=== PATIENT | female | born 1935 | race Caucasian/White ===

== ENCOUNTER 2017-11-11 06:31 | Inpatient (IN) ==
[2017-11-08 14:40] LABS: Basophils # 0.1 10*3/uL (0.0-0.2); Basophils % 0.7 % (0.0-0.8); Eosinophils # 0.4 10*3/uL (0.0-0.87); Eosinophils % 3.1 % (0.00-10.9); Hematocrit 33.3 VOL% (35.7-47.0); Hemoglobin 10.9 GM/DL (12.0-16.0); Immature Granulocytes % 0.6 %; Immature Granulocytes Absolute 0.08 #; Lymphocytes # 6.3 10*3/uL (1.4-4.0); Lymphocytes % 50.7 % (21.3-54.2); Mean Corpuscular HGB Conc 32.7 GM/DL (32-36); Mean Corpuscular Hemoglobin 30 PG (27-34); Mean Platelet Volume 9.4 FL (9.6-12.0); Monocytes # 0.9 10*3/uL (0.11-0.8); Monocytes % 7.2 % (1.7-12.7); Neutrophils # 4.7 10*3/uL (1.4-7.4); Neutrophils % 37.7 % (38.7-73.9); Platelet Count 243 T/CUMM (130-400); Red Cell Distribution Width 18.6 % (9.3-17.3); White Blood Count 12.4 T/CUMM (4-12)
[2017-11-08 15:11] LABS: Albumin 3.4 G/DL (3.4-5.0); Bilirubin,Total 0.4 MG/DL (0.2-1.0); Calcium 8.9 MG/DL (8.5-10.1); Osmolality,Calculated 283.1 MOS/KG (273-304); Potassium 4.1 MMOL/L (3.5-5.1); Total Protein 6.4 G/DL (6.4-8.3)
[2017-11-08 15:21] LABS: Microcytosis 1+
[2017-11-08 15:22] LABS: Anisocytosis 1+; Ovalocytes Few; Platelet Estimate Adequate; Polychromasia Slight
[~2017-11-11 06:31] MED LIST: ALVIMOPAN 12 MG CAPSULE PO ONE
[2017-11-11] MEDS ORDERED: LACTATED RINGERS 1,000 ML IV SCH (08:00)
[2017-11-11] MEDS ORDERED: BUPIVACAINE MPF 0.25% /EPI 30 ML VIAL ONE (09:18)
[2017-11-11] MEDS ORDERED: LIDOCAINE 1%/EPI INJ 20 ML VIAL ONE (09:18)
[2017-11-11] MEDS ORDERED: MIDAZOLAM 2 MG/2 ML VIAL ONE (14:23)
[2017-11-11] MEDS ORDERED: fentaNYL 100 MCG/2 ML VIAL ONE (14:23)
[2017-11-11] MEDS ORDERED: PROPOFOL 200 MG/20 ML VIAL IV ONE (14:24)
[2017-11-11] MEDS ORDERED: ROCURONIUM 100 MG/10 ML VIAL IV ONE (14:25)
[2017-11-11] MEDS ORDERED: ONDANSETRON 4 MG/2 ML VIAL ONE ×2 (14:25→15:02)
[2017-11-11] MEDS ORDERED: LACTATED RINGERS 1,000 ML IV ONE (14:25)
[2017-11-11] MEDS ORDERED: PHENYLEPHRINE 1 MG/10 ML SYRINGE IV ONE (14:25)
[2017-11-11] MEDS ORDERED: GLYCOPYRROLATE 0.4 MG/2 ML VIAL ONE ×2 (14:25)
[2017-11-11] MEDS ORDERED: NEOSTIGMINE 10 MG/10 ML VIAL ONE (14:25)
[2017-11-11] MEDS ORDERED: ACETAMINOPHEN 1,000 MG/100 ML VIAL IV ONE (14:25)
[2017-11-11] MEDS ORDERED: KETOROLAC 30 MG/1 ML VIAL ONE (14:25)
[2017-11-11] MEDS: ONDANSETRON 4 MG/2 ML VIAL IV PRN (15:02)
[2017-11-11] MEDS: DEXTROSE 5% LACTATED RINGERS 1,000 ML IV SCH (15:45)
[2017-11-11] MEDS: HYDROmorphone 2 MG/1 ML VIAL IV PRN (16:25)
[2017-11-11 16:49] LABS: Basophils % 0.3 % (0.0-0.8); Eosinophils % 0.1 % (0.00-10.9); Hemoglobin 9.4 GM/DL (12.0-16.0); Immature Granulocytes % 0.4 %; Immature Granulocytes Absolute 0.06 #; Lymphocytes # 2.8 10*3/uL (1.4-4.0); Lymphocytes % 21.1 % (21.3-54.2); Mean Corpuscular HGB Conc 31.3 GM/DL (32-36); Mean Corpuscular Hemoglobin 29 PG (27-34); Mean Corpuscular Volume 93.2 FL (87-102); Mean Platelet Volume 9.6 FL (9.6-12.0); Monocytes # 0.9 10*3/uL (0.11-0.8); Monocytes % 6.5 % (1.7-12.7); Neutrophils # 9.7 10*3/uL (1.4-7.4); Neutrophils % 71.6 % (38.7-73.9); Platelet Count 214 T/CUMM (130-400); Red Blood Count 3.22 MC/CUMM (3.8-5.5); Red Cell Distribution Width 18.6 % (9.3-17.3); White Blood Count 13.5 T/CUMM (4-12)
[2017-11-11 17:04] LABS: Calcium 7.2 MG/DL (8.5-10.1); Osmolality,Calculated 282.3 MOS/KG (273-304); Potassium 3.5 MMOL/L (3.5-5.1)
[2017-11-11 17:21] LABS: Band Neutrophils 8 % (0-10); Lymphocytes 13 % (20-55); Platelet Estimate Normal; Segmented Neutrophils 77 % (50-85); Total Cells Counted 100
[2017-11-11 17:22] LABS: Hypochromasia Slight; Macrocytosis Slight
[2017-11-11] MEDS: metroNIDAZOLE INJ 500 MG in PREMIX 1 EACH IV SCH (19:46)
[2017-11-11 23:00] LABS: Hematocrit 28.3 VOL% (35.7-47.0); Hemoglobin 8.8 GM/DL (12.0-16.0)
[2017-11-12] MEDS: HYDROmorphone 2 MG/1 ML VIAL IV PRN ×3 (00:38→22:25)
[2017-11-12] MEDS: DEXTROSE 5% LACTATED RINGERS 1,000 ML IV SCH ×3 (01:09→19:21)
[2017-11-12 03:20] LABS: Basophils # 0.1 10*3/uL (0.0-0.2); Basophils % 0.3 % (0.0-0.8); Eosinophils % 0.1 % (0.00-10.9); Hematocrit 26.2 VOL% (35.7-47.0); Hemoglobin 8.7 GM/DL (12.0-16.0); Immature Granulocytes % 0.4 %; Immature Granulocytes Absolute 0.08 #; Lymphocytes # 4.5 10*3/uL (1.4-4.0); Lymphocytes % 24.9 % (21.3-54.2); Mean Corpuscular HGB Conc 33.2 GM/DL (32-36); Mean Corpuscular Hemoglobin 31 PG (27-34); Mean Corpuscular Volume 92.3 FL (87-102); Mean Platelet Volume 9.8 FL (9.6-12.0); Monocytes # 1.2 10*3/uL (0.11-0.8); Monocytes % 6.4 % (1.7-12.7); Neutrophils # 12.2 10*3/uL (1.4-7.4); Neutrophils % 67.9 % (38.7-73.9); Platelet Count 219 T/CUMM (130-400); Red Blood Count 2.84 MC/CUMM (3.8-5.5); Red Cell Distribution Width 18.7 % (9.3-17.3)
[2017-11-12 04:05] LABS: Hypochromasia Slight; Platelet Estimate Adequate; Polychromasia Few
[2017-11-12 04:06] LABS: Calcium 7.5 MG/DL (8.5-10.1); Osmolality,Calculated 281.3 MOS/KG (273-304); Potassium 3.5 MMOL/L (3.5-5.1)
[2017-11-12] MEDS: metroNIDAZOLE INJ 500 MG in PREMIX 1 EACH IV SCH (05:01)
[2017-11-12] MEDS: ONDANSETRON 4 MG/2 ML VIAL IV PRN ×2 (07:03→22:25)
[2017-11-12] MEDS ORDERED: LEVOFLOXACIN INJ 500 MG in PREMIX 1 EACH IV SCH (08:11)
[2017-11-12] MEDS ORDERED: ENOXAPARIN 30 MG/0.3 ML SYRINGE SUBCUT SCH (08:12)
[2017-11-12] MEDS: ASPIRIN EC 81 MG TABLET PO SCH (09:02)
[2017-11-12] MEDS: DILTIAZEM CD 120 MG CAPSULE PO SCH (09:02)
[2017-11-12] MEDS: PANTOPRAZOLE 40 MG TABLET PO SCH (09:03)
[2017-11-12 09:14] LABS: Hematocrit 25.4 VOL% (35.7-47.0); Hemoglobin 7.8 GM/DL (12.0-16.0)
[2017-11-13] MEDS: DEXTROSE 5% LACTATED RINGERS 1,000 ML IV SCH ×3 (03:12→18:42)
[2017-11-13] MEDS: ONDANSETRON 4 MG/2 ML VIAL IV PRN ×4 (03:24→20:05)
[2017-11-13] MEDS: HYDROmorphone 2 MG/1 ML VIAL IV PRN (03:42)
[2017-11-13 06:41] LABS: Basophils # 0.1 10*3/uL (0.0-0.2); Basophils % 0.2 % (0.0-0.8); Eosinophils # 0.1 10*3/uL (0.0-0.87); Eosinophils % 0.3 % (0.00-10.9); Hematocrit 28.4 VOL% (35.7-47.0); Hemoglobin 9.1 GM/DL (12.0-16.0); Immature Granulocytes % 0.7 %; Immature Granulocytes Absolute 0.14 #; Lymphocytes # 8.4 10*3/uL (1.4-4.0); Lymphocytes % 40.5 % (21.3-54.2); Mean Corpuscular Hemoglobin 29 PG (27-34); Mean Corpuscular Volume 91.6 FL (87-102); Mean Platelet Volume 9.5 FL (9.6-12.0); Monocytes # 1.3 10*3/uL (0.11-0.8); Monocytes % 6.5 % (1.7-12.7); Neutrophils # 10.7 10*3/uL (1.4-7.4); Neutrophils % 51.8 % (38.7-73.9); Platelet Count 232 T/CUMM (130-400); Red Cell Distribution Width 19.2 % (9.3-17.3); White Blood Count 20.7 T/CUMM (4-12)
[2017-11-13 06:55] LABS: Calcium 8.1 MG/DL (8.5-10.1); Osmolality,Calculated 278.4 MOS/KG (273-304); Potassium 3.6 MMOL/L (3.5-5.1)
[2017-11-13 07:20] LABS: Atypical Lymphocytes Few; Lymphocytes 34 % (20-55); Smudge Cells Few; Total Cells Counted 100
[2017-11-13 07:21] LABS: Hypochromasia 1+; Microcytosis 1+
[2017-11-13 07:23] LABS: Segmented Neutrophils 59 % (50-85)
[2017-11-13] MEDS: DILTIAZEM CD 120 MG CAPSULE PO SCH (08:42)
[2017-11-13] MEDS: ASPIRIN EC 81 MG TABLET PO SCH (09:07)
[2017-11-13] MEDS: PANTOPRAZOLE 40 MG TABLET PO SCH (09:07)
[2017-11-13] MEDS: ENOXAPARIN 40 MG/0.4 ML SYRINGE SUBCUT SCH (09:08)
[2017-11-14] MEDS: ONDANSETRON 4 MG/2 ML VIAL IV PRN ×2 (01:19→06:30)
[2017-11-14] MEDS: DEXTROSE 5% LACTATED RINGERS 1,000 ML IV SCH ×3 (02:14→19:11)
[2017-11-14 05:01] LABS: Basophils % 0.3 % (0.0-0.8); Eosinophils # 0.1 10*3/uL (0.0-0.87); Hemoglobin 9.4 GM/DL (12.0-16.0); Immature Granulocytes % 0.4 %; Immature Granulocytes Absolute 0.06 #; Lymphocytes # 6.6 10*3/uL (1.4-4.0); Mean Corpuscular HGB Conc 32.4 GM/DL (32-36); Mean Corpuscular Hemoglobin 29 PG (27-34); Mean Corpuscular Volume 90.6 FL (87-102); Mean Platelet Volume 9.6 FL (9.6-12.0); Monocytes # 1.2 10*3/uL (0.11-0.8); Monocytes % 8.4 % (1.7-12.7); Neutrophils # 5.8 10*3/uL (1.4-7.4); Neutrophils % 41.9 % (38.7-73.9); Platelet Count 244 T/CUMM (130-400); Red Cell Distribution Width 18.6 % (9.3-17.3); White Blood Count 13.8 T/CUMM (4-12)
[2017-11-14 05:26] LABS: Anisocytosis 1+; Hypochromasia 1+; Microcytosis 1+
[2017-11-14 05:27] LABS: Ovalocytes Slight; Platelet Estimate Normal
[2017-11-14] MEDS ORDERED: PROMETHAZINE INJ 12.5 MG in SODIUM CHLORIDE 0.9% 50 ML IV ONE (07:32)
[2017-11-14] MEDS: ENOXAPARIN 40 MG/0.4 ML SYRINGE SUBCUT SCH (08:53)
[2017-11-14] MEDS: ASPIRIN EC 81 MG TABLET PO SCH (08:56)
[2017-11-14] MEDS: DILTIAZEM CD 120 MG CAPSULE PO SCH (08:56)
[2017-11-14] MEDS: PANTOPRAZOLE 40 MG TABLET PO SCH (08:57)
[2017-11-15] MEDS: DEXTROSE 5% LACTATED RINGERS 1,000 ML IV SCH ×3 (03:02→21:52)
[2017-11-15 06:24] LABS: Basophils # 0.1 10*3/uL (0.0-0.2); Basophils % 0.4 % (0.0-0.8); Eosinophils # 0.3 10*3/uL (0.0-0.87); Eosinophils % 2.3 % (0.00-10.9); Hemoglobin 8.6 GM/DL (12.0-16.0); Immature Granulocytes % 0.7 %; Immature Granulocytes Absolute 0.08 #; Lymphocytes # 6.6 10*3/uL (1.4-4.0); Lymphocytes % 57.1 % (21.3-54.2); Mean Corpuscular HGB Conc 30.7 GM/DL (32-36); Mean Corpuscular Hemoglobin 28 PG (27-34); Mean Corpuscular Volume 92.1 FL (87-102); Mean Platelet Volume 9.8 FL (9.6-12.0); Monocytes # 1.1 10*3/uL (0.11-0.8); Monocytes % 9.7 % (1.7-12.7); Neutrophils # 3.4 10*3/uL (1.4-7.4); Neutrophils % 29.8 % (38.7-73.9); Platelet Count 283 T/CUMM (130-400); Red Blood Count 3.04 MC/CUMM (3.8-5.5); Red Cell Distribution Width 18.7 % (9.3-17.3); White Blood Count 11.5 T/CUMM (4-12)
[2017-11-15 07:07] LABS: Band Neutrophils 3 % (0-10); Eosinophils 4 % (0-10); Hypochromasia 1+; Lymphocytes 51 % (20-55); Platelet Estimate Adequate; Segmented Neutrophils 29 % (50-85); Total Cells Counted 100
[2017-11-15 07:08] LABS: Atypical Lymphocytes Few; Microcytosis 1+
[2017-11-15] MEDS: ASPIRIN EC 81 MG TABLET PO SCH (08:19)
[2017-11-15] MEDS: DILTIAZEM CD 120 MG CAPSULE PO SCH (08:20)
[2017-11-15] MEDS: PANTOPRAZOLE 40 MG TABLET PO SCH (08:20)
[2017-11-15] MEDS: ENOXAPARIN 40 MG/0.4 ML SYRINGE SUBCUT SCH (08:20)
[2017-11-16 04:54] LABS: Calcium 8.2 MG/DL (8.5-10.1); Osmolality,Calculated 290.6 MOS/KG (273-304)
[2017-11-16 05:01] LABS: Potassium 2.4 MMOL/L (3.5-5.1)
[2017-11-16] MEDS: POTASSIUM CHLORIDE RIDER 20 MEQ in PREMIX 1 EACH IV PRN ×4 (06:42→23:28)
[2017-11-16] MEDS: DILTIAZEM CD 120 MG CAPSULE PO SCH (08:18)
[2017-11-16] MEDS: ENOXAPARIN 40 MG/0.4 ML SYRINGE SUBCUT SCH (08:18)
[2017-11-16] MEDS: ASPIRIN EC 81 MG TABLET PO SCH (08:18)
[2017-11-16] MEDS: PANTOPRAZOLE 40 MG TABLET PO SCH (08:18)
[2017-11-16] MEDS: POTASSIUM CHLORIDE 20 MEQ TABLET PO SCH ×2 (09:03→20:56)
[2017-11-16] MEDS: DEXTROSE 5% LACTATED RINGERS 1,000 ML IV SCH (21:31)
[2017-11-17 04:56] LABS: Basophils # 0.1 10*3/uL (0.0-0.2); Basophils % 0.3 % (0.0-0.8); Eosinophils # 0.2 10*3/uL (0.0-0.87); Eosinophils % 1.4 % (0.00-10.9); Hematocrit 25.6 VOL% (35.7-47.0); Hemoglobin 7.6 GM/DL (12.0-16.0); Immature Granulocytes % 2.9 %; Immature Granulocytes Absolute 0.43 #; Lymphocytes # 7.5 10*3/uL (1.4-4.0); Lymphocytes % 50.3 % (21.3-54.2); Mean Corpuscular HGB Conc 29.7 GM/DL (32-36); Mean Corpuscular Hemoglobin 28 PG (27-34); Mean Corpuscular Volume 94.5 FL (87-102); Monocytes # 1.1 10*3/uL (0.11-0.8); Monocytes % 7.4 % (1.7-12.7); NRBC # 0.02 10*3/uL; Neutrophils # 5.6 10*3/uL (1.4-7.4); Neutrophils % 37.7 % (38.7-73.9); Platelet Count 306 T/CUMM (130-400); Red Blood Count 2.71 MC/CUMM (3.8-5.5); Red Cell Distribution Width 19.1 % (9.3-17.3); White Blood Count 14.9 T/CUMM (4-12)
[2017-11-17 05:25] LABS: Atypical Lymphocytes Few; Band Neutrophils 3 % (0-10); Calcium 8.4 MG/DL (8.5-10.1); Eosinophils 3 % (0-10); Hypochromasia 1+; Lymphocytes 43 % (20-55); Microcytosis 1+; Myelocytes 2 %; Osmolality,Calculated 290.6 MOS/KG (273-304); Potassium 3.4 MMOL/L (3.5-5.1); Segmented Neutrophils 42 % (50-85); Total Cells Counted 100
[2017-11-17] MEDS: POTASSIUM CHLORIDE RIDER 20 MEQ in PREMIX 1 EACH IV PRN (05:50)
[2017-11-17] MEDS: DEXTROSE 5% LACTATED RINGERS 1,000 ML IV SCH ×4 (05:50→12:33)
[2017-11-17] MEDS: ASPIRIN EC 81 MG TABLET PO SCH (08:47)
[2017-11-17] MEDS: DILTIAZEM CD 120 MG CAPSULE PO SCH (08:48)
[2017-11-17] MEDS: POTASSIUM CHLORIDE 20 MEQ TABLET PO SCH (08:48)
[2017-11-17] MEDS: PANTOPRAZOLE 40 MG TABLET PO SCH (08:48)
[2017-11-17] MEDS: ENOXAPARIN 40 MG/0.4 ML SYRINGE SUBCUT SCH (08:57)
[2017-11-17] MEDS: POTASSIUM CHLORIDE RIDER 10 MEQ in PREMIX 1 EACH IV PRN (08:57)
[2017-11-17] MEDS ORDERED: INFLUENZA VIRUS VACCINE 0.5 ML SYRINGE IM ONE (09:00)
[2017-11-18] MEDS: DEXTROSE 5% LACTATED RINGERS 1,000 ML IV SCH (06:56)
[2017-11-18] MEDS: DILTIAZEM CD 120 MG CAPSULE PO SCH (09:57)
[2017-11-18] MEDS: ASPIRIN EC 81 MG TABLET PO SCH (09:58)
[2017-11-18] MEDS: PANTOPRAZOLE 40 MG TABLET PO SCH (09:58)
[2017-11-18 10:24] LABS: Basophils # 0.1 10*3/uL (0.0-0.2); Basophils % 0.3 % (0.0-0.8); Eosinophils # 0.1 10*3/uL (0.0-0.87); Eosinophils % 0.5 % (0.00-10.9); Hematocrit 27.8 VOL% (35.7-47.0); Hemoglobin 8.6 GM/DL (12.0-16.0); Immature Granulocytes % 3.9 %; Lymphocytes # 11.5 10*3/uL (1.4-4.0); Lymphocytes % 50.5 % (21.3-54.2); Mean Corpuscular HGB Conc 30.9 GM/DL (32-36); Mean Corpuscular Hemoglobin 29 PG (27-34); Mean Corpuscular Volume 93.3 FL (87-102); Mean Platelet Volume 10.1 FL (9.6-12.0); Monocytes # 1.4 10*3/uL (0.11-0.8); Monocytes % 6.1 % (1.7-12.7); NRBC # 0.02 10*3/uL; Neutrophils # 8.8 10*3/uL (1.4-7.4); Neutrophils % 38.7 % (38.7-73.9); Platelet Count 376 T/CUMM (130-400); Red Blood Count 2.98 MC/CUMM (3.8-5.5); Red Cell Distribution Width 18.9 % (9.3-17.3); White Blood Count 22.8 T/CUMM (4-12)
[2017-11-18 10:37] LABS: Calcium 8.5 MG/DL (8.5-10.1); Osmolality,Calculated 288.8 MOS/KG (273-304); Potassium 3.2 MMOL/L (3.5-5.1)
[2017-11-18 11:15] LABS: Band Neutrophils 3 % (0-10); Hypochromasia 1+; Lymphocytes 47 % (20-55); Microcytosis 1+; Segmented Neutrophils 43 % (50-85); Total Cells Counted 100
[2017-11-18 11:16] LABS: Atypical Lymphocytes Few; Ovalocytes Slight; Smudge Cells Few
[2017-11-18 11:19] LABS: Platelet Estimate Normal
[2017-11-18] MEDS: POTASSIUM CHLORIDE RIDER 10 MEQ in PREMIX 1 EACH IV PRN ×2 (11:25→12:39)
[2017-11-18] MEDS: ONDANSETRON 4 MG/2 ML VIAL IV PRN (12:53)
[2017-11-18] MEDS: ENOXAPARIN 40 MG/0.4 ML SYRINGE SUBCUT SCH (12:56)
[2017-11-18] MEDS: POTASSIUM CHLORIDE RIDER 20 MEQ in PREMIX 1 EACH IV PRN (17:46)
[2017-11-19 07:01] LABS: Calcium 8.6 MG/DL (8.5-10.1); Osmolality,Calculated 281.3 MOS/KG (273-304); Potassium 3.2 MMOL/L (3.5-5.1)
[2017-11-19 07:33] LABS: Basophils # 0.1 10*3/uL (0.0-0.2); Basophils % 0.3 % (0.0-0.8); Eosinophils # 0.2 10*3/uL (0.0-0.87); Hematocrit 28.5 VOL% (35.7-47.0); Hemoglobin 8.7 GM/DL (12.0-16.0); Immature Granulocytes % 3.2 %; Immature Granulocytes Absolute 0.78 #; Lymphocytes # 14.2 10*3/uL (1.4-4.0); Lymphocytes % 57.8 % (21.3-54.2); Mean Corpuscular HGB Conc 30.5 GM/DL (32-36); Mean Corpuscular Hemoglobin 28 PG (27-34); Mean Corpuscular Volume 93.1 FL (87-102); Mean Platelet Volume 10.2 FL (9.6-12.0); Monocytes # 1.4 10*3/uL (0.11-0.8); Monocytes % 5.8 % (1.7-12.7); Neutrophils # 7.8 10*3/uL (1.4-7.4); Neutrophils % 31.9 % (38.7-73.9); Platelet Count 443 T/CUMM (130-400); Red Blood Count 3.06 MC/CUMM (3.8-5.5); White Blood Count 24.5 T/CUMM (4-12)
[2017-11-19] MEDS: DEXTROSE 5% LACTATED RINGERS 1,000 ML IV SCH ×3 (07:40→08:18)
[2017-11-19 07:54] LABS: Calcium 8.5 MG/DL (8.5-10.1); Osmolality,Calculated 284.1 MOS/KG (273-304); Potassium 3.2 MMOL/L (3.5-5.1)
[2017-11-19 07:58] LABS: Band Neutrophils 20 % (0-10); Lymphocytes 43 % (20-55); Platelet Estimate Normal; Segmented Neutrophils 29 % (50-85); Smudge Cells 1+; Total Cells Counted 100
[2017-11-19 07:59] LABS: Anisocytosis 1+
[2017-11-19] MEDS: ASPIRIN EC 81 MG TABLET PO SCH (09:22)
[2017-11-19] MEDS: PANTOPRAZOLE 40 MG TABLET PO SCH (09:22)
[2017-11-19] MEDS: ENOXAPARIN 40 MG/0.4 ML SYRINGE SUBCUT SCH (09:22)
[2017-11-19] MEDS: DILTIAZEM CD 120 MG CAPSULE PO SCH (09:22)
[2017-11-19] MEDS: ONDANSETRON 4 MG/2 ML VIAL IV PRN ×3 (13:08→23:32)
[2017-11-19] MEDS: DEXT 5% NACL 0.45% KCL 20 MEQ 20 MEQ/1,000 ML BAG IV SCH (15:44)
[2017-11-19] MEDS: POTASSIUM CHLORIDE RIDER 10 MEQ in PREMIX 1 EACH IV PRN ×4 (15:47→19:01)
[2017-11-19] MEDS ORDERED: DEXTROSE 50% 25 GM/50 ML VIAL IV PRN (16:09)
[2017-11-19] MEDS ORDERED: GLUCAGON 1 MG VIAL IM PRN (16:09)
[2017-11-19] MEDS ORDERED: DEXTROSE 10% 1,000 ML IV PRN (17:00)
[2017-11-19] MEDS ORDERED: TRACE ELEMENTS (5) 1 ML, MULTIVITAMIN INJ 10 ML in AMINO ACIDS/DEXT/LYTES 5-15% 2,000 ML IV SCH (17:00)
[2017-11-19] MEDS: INSULIN REGULAR 100 UNIT/ML SUBCUT SCH (17:50)
[2017-11-19] MEDS: FAT EMULSION 20% 250 ML IV SCH (20:38)
[2017-11-20] MEDS: PROMETHAZINE INJ 25 MG in SODIUM CHLORIDE 0.9% 50 ML IV PRN ×2 (00:31→10:39)
[2017-11-20] MEDS: INSULIN REGULAR 100 UNIT/ML SUBCUT SCH ×4 (01:40→18:51)
[2017-11-20] MEDS: DEXT 5% NACL 0.45% KCL 20 MEQ 20 MEQ/1,000 ML BAG IV SCH ×2 (01:40→12:01)
[2017-11-20 04:36] LABS: Basophils # 0.1 10*3/uL (0.0-0.2); Basophils % 0.3 % (0.0-0.8); Eosinophils # 0.3 10*3/uL (0.0-0.87); Eosinophils % 1.3 % (0.00-10.9); Hematocrit 26.9 VOL% (35.7-47.0); Hemoglobin 8.3 GM/DL (12.0-16.0); Immature Granulocytes % 2.9 %; Immature Granulocytes Absolute 0.69 #; Lymphocytes # 12.5 10*3/uL (1.4-4.0); Mean Corpuscular HGB Conc 30.9 GM/DL (32-36); Mean Corpuscular Hemoglobin 28 PG (27-34); Mean Corpuscular Volume 91.8 FL (87-102); Mean Platelet Volume 10.5 FL (9.6-12.0); Monocytes # 1.2 10*3/uL (0.11-0.8); Monocytes % 5.2 % (1.7-12.7); NRBC # 0.02 10*3/uL; Neutrophils # 8.8 10*3/uL (1.4-7.4); Neutrophils % 37.3 % (38.7-73.9); Platelet Count 453 T/CUMM (130-400); Red Blood Count 2.93 MC/CUMM (3.8-5.5); Red Cell Distribution Width 18.8 % (9.3-17.3); White Blood Count 23.6 T/CUMM (4-12)
[2017-11-20 04:52] LABS: Calcium 7.9 MG/DL (8.5-10.1); Osmolality,Calculated 283.4 MOS/KG (273-304); Potassium 3.7 MMOL/L (3.5-5.1)
[2017-11-20 04:56] LABS: Prealbumin 16.6 MG/DL (20-40)
[2017-11-20 07:21] LABS: Band Neutrophils 3 % (0-10); Lymphocytes 50 % (20-55); Segmented Neutrophils 38 % (50-85); Total Cells Counted 100
[2017-11-20 07:22] LABS: Platelet Estimate Normal
[2017-11-20] MEDS: POTASSIUM CHLORIDE RIDER 10 MEQ in PREMIX 1 EACH IV PRN (07:56)
[2017-11-20] MEDS: ASPIRIN EC 81 MG TABLET PO SCH (09:02)
[2017-11-20] MEDS: DILTIAZEM CD 120 MG CAPSULE PO SCH (09:02)
[2017-11-20] MEDS: PANTOPRAZOLE 40 MG TABLET PO SCH (09:02)
[2017-11-20] MEDS: ENOXAPARIN 40 MG/0.4 ML SYRINGE SUBCUT SCH (09:02)
[2017-11-20] MEDS ORDERED: HEPARIN LOCK FLUSH 500 UNIT/5 ML SYRINGE IV PRN (10:45)
[2017-11-20] MEDS: FAT EMULSION 20% 250 ML IV SCH (13:06)
[2017-11-20] MEDS: TRACE ELEMENTS (5) 1 ML, MULTIVITAMIN INJ 10 ML in AMINO ACIDS/DEXT/LYTES 5-15% 2,000 ML IV SCH (17:35)
[2017-11-21] MEDS: INSULIN REGULAR 100 UNIT/ML SUBCUT SCH ×4 (01:33→18:20)
[2017-11-21] MEDS: DEXT 5% NACL 0.45% KCL 20 MEQ 20 MEQ/1,000 ML BAG IV SCH ×3 (02:15→14:06)
[2017-11-21] MEDS: DILTIAZEM CD 120 MG CAPSULE PO SCH (09:10)
[2017-11-21] MEDS: PANTOPRAZOLE 40 MG TABLET PO SCH (09:11)
[2017-11-21] MEDS: ASPIRIN EC 81 MG TABLET PO SCH (09:11)
[2017-11-21] MEDS: ENOXAPARIN 40 MG/0.4 ML SYRINGE SUBCUT SCH (09:13)
[2017-11-21] MEDS: FAT EMULSION 20% 250 ML IV SCH (16:48)
[2017-11-21] MEDS: TRACE ELEMENTS (5) 1 ML, MULTIVITAMIN INJ 10 ML in AMINO ACIDS/DEXT/LYTES 5-15% 2,000 ML IV SCH (21:26)
[2017-11-22] MEDS: INSULIN REGULAR 100 UNIT/ML SUBCUT SCH ×4 (01:41→17:21)
[2017-11-22] MEDS: DEXT 5% NACL 0.45% KCL 20 MEQ 20 MEQ/1,000 ML BAG IV SCH ×4 (04:46→21:30)
[2017-11-22] MEDS: ASPIRIN EC 81 MG TABLET PO SCH (09:47)
[2017-11-22] MEDS: ENOXAPARIN 40 MG/0.4 ML SYRINGE SUBCUT SCH (09:47)
[2017-11-22] MEDS: DILTIAZEM CD 120 MG CAPSULE PO SCH (09:47)
[2017-11-22] MEDS: PANTOPRAZOLE 40 MG TABLET PO SCH (09:47)
[2017-11-22 11:59] LABS: Calcium 7.8 MG/DL (8.5-10.1); Potassium 4.3 MMOL/L (3.5-5.1)
[2017-11-22] MEDS: FAT EMULSION 20% 250 ML IV SCH (13:25)
[2017-11-22] MEDS: TRACE ELEMENTS (5) 1 ML, MULTIVITAMIN INJ 10 ML in AMINO ACIDS/DEXT/LYTES 5-15% 2,000 ML IV SCH (16:32)
[2017-11-23] MEDS: INSULIN REGULAR 100 UNIT/ML SUBCUT SCH ×4 (00:19→20:14)
[2017-11-23 07:19] LABS: Basophils # 0.1 10*3/uL (0.0-0.2); Basophils % 0.2 % (0.0-0.8); Eosinophils # 0.4 10*3/uL (0.0-0.87); Eosinophils % 1.4 % (0.00-10.9); Hematocrit 25.4 VOL% (35.7-47.0); Hemoglobin 8.1 GM/DL (12.0-16.0); Immature Granulocytes % 3.9 %; Immature Granulocytes Absolute 0.95 #; Lymphocytes # 14.7 10*3/uL (1.4-4.0); Lymphocytes % 59.9 % (21.3-54.2); Mean Corpuscular HGB Conc 31.9 GM/DL (32-36); Mean Corpuscular Hemoglobin 28 PG (27-34); Mean Corpuscular Volume 89.1 FL (87-102); Mean Platelet Volume 10.3 FL (9.6-12.0); Monocytes # 0.9 10*3/uL (0.11-0.8); Monocytes % 3.5 % (1.7-12.7); Neutrophils # 7.6 10*3/uL (1.4-7.4); Neutrophils % 31.1 % (38.7-73.9); Platelet Count 347 T/CUMM (130-400); Red Blood Count 2.85 MC/CUMM (3.8-5.5); Red Cell Distribution Width 18.3 % (9.3-17.3); White Blood Count 24.6 T/CUMM (4-12)
[2017-11-23 07:43] LABS: Eosinophils 2 % (0-10); Lymphocytes 56 % (20-55); Segmented Neutrophils 40 % (50-85); Total Cells Counted 100
[2017-11-23 07:44] LABS: Atypical Lymphocytes Few; Hypochromasia 1+; Microcytosis Slight; Platelet Estimate Adequate
[2017-11-23] MEDS: DILTIAZEM CD 120 MG CAPSULE PO SCH (11:39)
[2017-11-23] MEDS: PANTOPRAZOLE 40 MG TABLET PO SCH (11:39)
[2017-11-23] MEDS: ASPIRIN EC 81 MG TABLET PO SCH (11:40)
[2017-11-23] MEDS: ENOXAPARIN 40 MG/0.4 ML SYRINGE SUBCUT SCH (11:40)
[2017-11-23] MEDS: FAT EMULSION 20% 250 ML IV SCH (15:04)
[2017-11-24] MEDS ORDERED: LEVOFLOXACIN INJ 500 MG in PREMIX 1 EACH IV ONE (07:25)
[2017-11-24 08:48] LABS: Basophils # 0.1 10*3/uL (0.0-0.2); Basophils % 0.3 % (0.0-0.8); Eosinophils # 0.2 10*3/uL (0.0-0.87); Eosinophils % 0.7 % (0.00-10.9); Hematocrit 24.9 VOL% (35.7-47.0); Immature Granulocytes % 2.7 %; Immature Granulocytes Absolute 0.63 #; Lymphocytes # 14.7 10*3/uL (1.4-4.0); Lymphocytes % 63.2 % (21.3-54.2); Mean Corpuscular HGB Conc 32.1 GM/DL (32-36); Mean Corpuscular Hemoglobin 29 PG (27-34); Mean Corpuscular Volume 88.9 FL (87-102); Mean Platelet Volume 10.3 FL (9.6-12.0); Monocytes % 4.2 % (1.7-12.7); Neutrophils # 6.7 10*3/uL (1.4-7.4); Neutrophils % 28.9 % (38.7-73.9); Platelet Count 386 T/CUMM (130-400); Red Cell Distribution Width 18.4 % (9.3-17.3); White Blood Count 23.2 T/CUMM (4-12)
[2017-11-24 09:15] LABS: Atypical Lymphocytes Few; Band Neutrophils 1 % (0-10); Eosinophils 1 % (0-10); Hypochromasia 1+; Lymphocytes 60 % (20-55); Ovalocytes Slight; Platelet Estimate Adequate; Segmented Neutrophils 34 % (50-85); Smudge Cells Few; Total Cells Counted 100
[2017-11-24 09:16] LABS: Microcytosis Slight
[2017-11-24 09:18] LABS: Albumin 2.2 G/DL (3.4-5.0); Bilirubin,Total 0.6 MG/DL (0.2-1.0); Calcium 8.1 MG/DL (8.5-10.1); Osmolality,Calculated 271.8 MOS/KG (273-304); Potassium 4.1 MMOL/L (3.5-5.1); Total Protein 5.5 G/DL (6.4-8.3)
[2017-11-24] MEDS: DILTIAZEM CD 120 MG CAPSULE PO SCH (09:29)
[2017-11-24] MEDS: PANTOPRAZOLE 40 MG TABLET PO SCH (09:36)
[2017-11-24] MEDS: ENOXAPARIN 40 MG/0.4 ML SYRINGE SUBCUT SCH (09:36)
[2017-11-24] MEDS: ASPIRIN EC 81 MG TABLET PO SCH (09:37)
[2017-11-24] MEDS: metroNIDAZOLE INJ 500 MG in PREMIX 1 EACH IV ONE (12:30)
[2017-11-24] MEDS ORDERED: BUPIVACAINE MPF 0.25% /EPI 30 ML VIAL ONE (12:34)
[2017-11-24] MEDS ORDERED: LIDOCAINE 1%/EPI INJ 20 ML VIAL ONE (12:34)
[2017-11-24] MEDS ORDERED: ALBUMIN 5% 12.5 GM/250 ML VIAL IV ONE ×2 (13:31→14:04)
[2017-11-24] MEDS ORDERED: SEVOFLURANE 1 UNIT/15 MINUTE INH ONE (14:04)
[2017-11-24] MEDS ORDERED: fentaNYL 100 MCG/2 ML VIAL ONE (14:04)
[2017-11-24] MEDS ORDERED: PROPOFOL 200 MG/20 ML VIAL IV ONE (14:04)
[2017-11-24] MEDS ORDERED: PHENYLEPHRINE 1 MG/10 ML SYRINGE IV ONE (14:05)
[2017-11-24] MEDS ORDERED: ROCURONIUM 100 MG/10 ML VIAL IV ONE (14:05)
[2017-11-24] MEDS ORDERED: NEOSTIGMINE 10 MG/10 ML VIAL ONE (14:05)
[2017-11-24] MEDS ORDERED: SODIUM CHLORIDE 0.9% 1,000 ML IV ONE (14:05)
[2017-11-24] MEDS ORDERED: GLYCOPYRROLATE 0.4 MG/2 ML VIAL ONE (14:05)
[2017-11-24] MEDS ORDERED: ACETAMINOPHEN 1,000 MG/100 ML VIAL IV ONE (14:05)
[2017-11-24] MEDS ORDERED: SUCCINYLCHOLINE 200 MG/10 ML VIAL ONE (14:08)
[2017-11-24] MEDS ORDERED: ONDANSETRON 4 MG/2 ML VIAL ONE (14:54)
[2017-11-24] MEDS ORDERED: ONDANSETRON 4 MG/2 ML VIAL IV PRN (14:57)
[2017-11-24 15:18] LABS: Hematocrit 24.9 VOL% (35.7-47.0); Hemoglobin 7.8 GM/DL (12.0-16.0)
[2017-11-24 15:18] LABS: Apearance,Urine CLEAR (Clear); Bilirubin,Urine Negative (Negative); Blood, Urine Negative (Negative); Glucose,Urine (UA) Negative (Negative); Ketones,Urine Negative (Negative); Mucus,Urine Occasional /LPF (Occasional); Nitrite,Urine Negative (Negative); Protein,Urine Negative; RBC,Urine 1 /HPF (0-4); Urine Color Amber (Yellow); Urine Specific Gravity 1.016 (1.001-1.035); Urine Urobilinogen < 2.0 EU/DL (0.2-1.0); WBC,Urine 2 /HPF (0-6)
[2017-11-24] MEDS: DEXTROSE 5% LACTATED RINGERS 1,000 ML IV SCH ×2 (15:27→23:06)
[2017-11-24] MEDS: HYDROmorphone 2 MG/1 ML VIAL IV PRN ×2 (16:22→19:39)
[2017-11-24] MEDS: TRACE ELEMENTS (5) 1 ML, MULTIVITAMIN INJ 10 ML in AMINO ACIDS/DEXT/LYTES 5-15% 2,000 ML IV SCH ×3 (16:48→17:12)
[2017-11-24] MEDS: FAT EMULSION 20% 250 ML IV SCH (16:50)
[2017-11-24] MEDS ORDERED: GLUCAGON 1 MG VIAL IM PRN (18:00)
[2017-11-24] MEDS ORDERED: DEXTROSE 50% 25 GM/50 ML VIAL IV PRN (18:00)
[2017-11-24] MEDS: INSULIN REGULAR 100 UNIT/ML SUBCUT SCH (18:12)
[2017-11-24] MEDS: metroNIDAZOLE INJ 500 MG in PREMIX 1 EACH IV SCH (21:30)
[2017-11-25] MEDS: INSULIN REGULAR 100 UNIT/ML SUBCUT SCH ×4 (00:40→18:20)
[2017-11-25] MEDS: HYDROmorphone 2 MG/1 ML VIAL IV PRN ×5 (01:47→21:56)
[2017-11-25 04:32] LABS: Basophils # 0.1 10*3/uL (0.0-0.2); Basophils % 0.2 % (0.0-0.8); Hematocrit 26.5 VOL% (35.7-47.0); Hemoglobin 8.3 GM/DL (12.0-16.0); Immature Granulocytes % 1.5 %; Immature Granulocytes Absolute 0.65 #; Lymphocytes # 18.6 10*3/uL (1.4-4.0); Lymphocytes % 43.7 % (21.3-54.2); Mean Corpuscular HGB Conc 31.3 GM/DL (32-36); Mean Corpuscular Hemoglobin 28 PG (27-34); Mean Corpuscular Volume 90.1 FL (87-102); Mean Platelet Volume 10.3 FL (9.6-12.0); Monocytes # 1.8 10*3/uL (0.11-0.8); Monocytes % 4.3 % (1.7-12.7); Neutrophils # 21.4 10*3/uL (1.4-7.4); Neutrophils % 50.3 % (38.7-73.9); Platelet Count 477 T/CUMM (130-400); Red Blood Count 2.94 MC/CUMM (3.8-5.5); Red Cell Distribution Width 18.7 % (9.3-17.3)
[2017-11-25 04:36] LABS: White Blood Count 42.6 T/CUMM (4-12)
[2017-11-25] MEDS: DEXTROSE 5% LACTATED RINGERS 1,000 ML IV SCH ×3 (04:45→14:38)
[2017-11-25 04:59] LABS: Band Neutrophils 3 % (0-10); Lymphocytes 32 % (20-55); Segmented Neutrophils 59 % (50-85); Total Cells Counted 100
[2017-11-25 05:00] LABS: Hypochromasia 1+; Microcytosis Slight; Ovalocytes Slight; Platelet Estimate Adequate
[2017-11-25 05:01] LABS: Atypical Lymphocytes Few; Prealbumin 11.8 MG/DL (20-40); Smudge Cells Few
[2017-11-25 05:03] LABS: Albumin 1.9 G/DL (3.4-5.0); Bilirubin,Total 0.6 MG/DL (0.2-1.0); Calcium 7.7 MG/DL (8.5-10.1); Total Protein 4.4 G/DL (6.4-8.3)
[2017-11-25 05:04] LABS: Osmolality,Calculated 281.1 MOS/KG (273-304); Potassium 5.1 MMOL/L (3.5-5.1)
[2017-11-25] MEDS: metroNIDAZOLE INJ 500 MG in PREMIX 1 EACH IV SCH (05:08)
[2017-11-25] MEDS ORDERED: MAGNESIUM SULF RIDER 1 GM in PREMIX 1 EACH IV ONE (05:35)
[2017-11-25] MEDS ORDERED: ALBUMIN 5% 12.5 GM in PREMIX 1 EACH IV ONE ×2 (05:40→11:37)
[2017-11-25] MEDS ORDERED: SODIUM CHLORIDE 0.9% 500 ML IV ONE (06:55)
[2017-11-25 07:29] LABS: Hematocrit 24.6 VOL% (35.7-47.0); Hemoglobin 7.8 GM/DL (12.0-16.0)
[2017-11-25] MEDS: DILTIAZEM CD 120 MG CAPSULE PO SCH (08:25)
[2017-11-25] MEDS: ENOXAPARIN 40 MG/0.4 ML SYRINGE SUBCUT SCH (08:25)
[2017-11-25] MEDS: ASPIRIN EC 81 MG TABLET PO SCH (08:25)
[2017-11-25] MEDS: PANTOPRAZOLE 40 MG TABLET PO SCH (08:42)
[2017-11-25] MEDS ORDERED: LEVOFLOXACIN INJ 500 MG in PREMIX 1 EACH IV ONE (08:55)
[2017-11-25] MEDS: ONDANSETRON 4 MG/2 ML VIAL IV PRN (13:06)
[2017-11-25] MEDS: FAT EMULSION 20% 250 ML IV SCH (15:04)
[2017-11-25] MEDS ORDERED: ALBUMIN 5% 25 GM in PREMIX 1 EACH IV ONE (16:48)
[2017-11-25] MEDS: TRACE ELEMENTS (5) 1 ML, MULTIVITAMIN INJ 10 ML, INSULIN REGULAR 30 UNIT in AMINO ACIDS... IV SCH (16:58)
[2017-11-25] MEDS: LACTATED RINGERS 1,000 ML IV SCH ×2 (16:58→23:50)
[2017-11-26] MEDS: INSULIN REGULAR 100 UNIT/ML SUBCUT SCH ×4 (00:50→18:36)
[2017-11-26] MEDS: HYDROmorphone 2 MG/1 ML VIAL IV PRN ×4 (03:03→19:12)
[2017-11-26 03:39] LABS: Basophils % 0.1 % (0.0-0.8); Eosinophils % 0.1 % (0.00-10.9); Hematocrit 19.9 VOL% (35.7-47.0); Immature Granulocytes % 1.1 %; Immature Granulocytes Absolute 0.35 #; Lymphocytes # 16.3 10*3/uL (1.4-4.0); Mean Corpuscular HGB Conc 31.7 GM/DL (32-36); Mean Corpuscular Hemoglobin 29 PG (27-34); Mean Corpuscular Volume 90.9 FL (87-102); Monocytes # 1.7 10*3/uL (0.11-0.8); Monocytes % 5.4 % (1.7-12.7); Neutrophils # 12.9 10*3/uL (1.4-7.4); Neutrophils % 41.3 % (38.7-73.9); Platelet Count 351 T/CUMM (130-400); Red Blood Count 2.19 MC/CUMM (3.8-5.5); Red Cell Distribution Width 18.9 % (9.3-17.3); White Blood Count 31.3 T/CUMM (4-12)
[2017-11-26 03:54] LABS: Hemoglobin 6.3 GM/DL (12.0-16.0)
[2017-11-26] MEDS: LACTATED RINGERS 1,000 ML IV SCH ×3 (04:00→18:37)
[2017-11-26 04:01] LABS: Calcium 7.7 MG/DL (8.5-10.1); Osmolality,Calculated 278.8 MOS/KG (273-304); Potassium 4.9 MMOL/L (3.5-5.1)
[2017-11-26] MEDS ORDERED: SODIUM CHLORIDE 0.9% 1,000 ML IV PRN (04:09)
[2017-11-26 04:21] LABS: Lymphocytes 40 % (20-55); Platelet Estimate Normal; Segmented Neutrophils 55 % (50-85); Total Cells Counted 100
[2017-11-26 04:22] LABS: Hypochromasia Slight; Polychromasia Few
[2017-11-26] MEDS ORDERED: FUROSEMIDE 20 MG/2 ML VIAL IV ONE (07:13)
[2017-11-26 09:20] LABS: ABG Base Excess 0.1 MMOL/L (-2.5-2.5); ABG HCO3 24.5 MMOL/L (20-26); ABG Oxygen Saturation 97.6 % (95-100); ABG PCO2 51.1 MM HG (35-48); ABG PH 7.324 (7.35-7.45); ABG PO2 95.8 MM HG (80-95); ABG TCO2 24.7 MMOL/L (23-27); Allen Test Positive; Pt O2 Delivery Device Venturi Mask
[2017-11-26] MEDS: LANSOPRAZOLE ODT 30 MG TABLET PO SCH (10:04)
[2017-11-26] MEDS: ASPIRIN EC 81 MG TABLET PO SCH (10:04)
[2017-11-26] MEDS: ENOXAPARIN 40 MG/0.4 ML SYRINGE SUBCUT SCH (10:04)
[2017-11-26] MEDS: DILTIAZEM CD 120 MG CAPSULE PO SCH (10:04)
[2017-11-26] MEDS: PANTOPRAZOLE 40 MG TABLET PO SCH (10:05)
[2017-11-26 12:12] LABS: Allen Test Positive; Pt O2 Delivery Device Venturi Mask
[2017-11-26 12:14] LABS: ABG Base Excess 1.2 MMOL/L (-2.5-2.5); ABG HCO3 25.5 MMOL/L (20-26); ABG Oxygen Saturation 98.2 % (95-100); ABG PCO2 43.9 MM HG (35-48); ABG PH 7.388 (7.35-7.45); ABG TCO2 24.2 MMOL/L (23-27)
[2017-11-26 12:34] LABS: Basophils # 0.1 10*3/uL (0.0-0.2); Basophils % 0.3 % (0.0-0.8); Eosinophils % 0.1 % (0.00-10.9); Hemoglobin 8.6 GM/DL (12.0-16.0); Immature Granulocytes Absolute 0.35 #; Lymphocytes # 18.8 10*3/uL (1.4-4.0); Lymphocytes % 54.5 % (21.3-54.2); Mean Corpuscular HGB Conc 31.9 GM/DL (32-36); Mean Corpuscular Hemoglobin 28 PG (27-34); Mean Corpuscular Volume 89.1 FL (87-102); Monocytes % 5.8 % (1.7-12.7); Neutrophils # 13.2 10*3/uL (1.4-7.4); Neutrophils % 38.3 % (38.7-73.9); Platelet Count 350 T/CUMM (130-400); Red Blood Count 3.03 MC/CUMM (3.8-5.5); Red Cell Distribution Width 17.2 % (9.3-17.3); White Blood Count 34.4 T/CUMM (4-12)
[2017-11-26 12:40] LABS: Albumin 2.2 G/DL (3.4-5.0); Bilirubin,Total 0.5 MG/DL (0.2-1.0); Calcium 7.8 MG/DL (8.5-10.1); Osmolality,Calculated 276.7 MOS/KG (273-304); Potassium 4.4 MMOL/L (3.5-5.1); Total Protein 4.8 G/DL (6.4-8.3)
[2017-11-26 13:03] LABS: Atypical Lymphocytes Few; Band Neutrophils 4 % (0-10); Lymphocytes 43 % (20-55); Platelet Estimate Normal; Segmented Neutrophils 44 % (50-85); Smudge Cells 1+; Total Cells Counted 100
[2017-11-26 13:04] LABS: Anisocytosis Slight
[2017-11-26] MEDS: FAT EMULSION 20% 250 ML IV SCH (13:53)
[2017-11-26 14:46] LABS: INR 1.1; PT Patient Result 11.4 SECS
[2017-11-26] MEDS ORDERED: ALBUTEROL/IPRATROPIUM 3 ML NEB RESP TX PRN (16:58)
[2017-11-26] MEDS: TRACE ELEMENTS (5) 1 ML, MULTIVITAMIN INJ 10 ML, INSULIN REGULAR 30 UNIT in AMINO ACIDS... IV SCH (17:07)
[2017-11-26] MEDS ORDERED: ALBUTEROL 2.5 MG/3 ML NEB RESP TX PRN (21:20)
[2017-11-26 21:23] LABS: ABG Base Excess -1.8 MMOL/L (-2.5-2.5); ABG PCO2 67.6 MM HG (35-48); ABG PH 7.216 (7.35-7.45); ABG TCO2 25.6 MMOL/L (23-27); Allen Test Positive
[2017-11-26] MEDS ORDERED: SODIUM BICARBONATE 50 MEQ/50 ML SYRINGE IV ONE (21:30)
[2017-11-26] MEDS ORDERED: FUROSEMIDE 40 MG/4 ML VIAL IV ONE (21:36)
[2017-11-26] MEDS ORDERED: methylPREDNISolone SOD SUC 125 MG/2 ML VIAL IV ONE (21:53)
[2017-11-26] MEDS ORDERED: methylPREDNISolone SOD SUC 125 MG/2 ML VIAL ONE (21:56)
[2017-11-26] MEDS ORDERED: NALOXONE 0.4 MG/ML VIAL IV ONE (21:58)
[2017-11-26] MEDS: LEVOFLOXACIN INJ 750 MG in PREMIX 1 EACH IV SCH (22:48)
[2017-11-26 23:22] LABS: ABG Base Excess 3.9 MMOL/L (-2.5-2.5); ABG HCO3 27.9 MMOL/L (20-26); ABG Oxygen Saturation 99.8 % (95-100); ABG PCO2 46.9 MM HG (35-48); ABG PH 7.403 (7.35-7.45); ABG TCO2 26.9 MMOL/L (23-27); Allen Test Positive
[2017-11-27] MEDS: VANCOMYCIN INJ 1,000 MG in SODIUM CHLORIDE 0.9% 250 ML IV SCH ×3 (00:12→22:02)
[2017-11-27] MEDS: INSULIN REGULAR 100 UNIT/ML SUBCUT SCH ×4 (00:27→19:08)
[2017-11-27] MEDS: LACTATED RINGERS 1,000 ML IV SCH (02:50)
[2017-11-27 03:06] LABS: ABG Base Excess 4.4 MMOL/L (-2.5-2.5); ABG HCO3 28.4 MMOL/L (20-26); ABG Oxygen Saturation 97.1 % (95-100); ABG PCO2 44.3 MM HG (35-48); ABG PH 7.428 (7.35-7.45); ABG PO2 84.1 MM HG (80-95); ABG TCO2 26.9 MMOL/L (23-27); Allen Test Positive; Pt O2 Delivery Device Venturi Mask
[2017-11-27 04:34] LABS: Basophils % 0.2 % (0.0-0.8); Hemoglobin 8.6 GM/DL (12.0-16.0); Immature Granulocytes % 1.2 %; Immature Granulocytes Absolute 0.32 #; Lymphocytes # 12.2 10*3/uL (1.4-4.0); Lymphocytes % 46.7 % (21.3-54.2); Mean Corpuscular HGB Conc 31.9 GM/DL (32-36); Mean Corpuscular Hemoglobin 29 PG (27-34); Mean Corpuscular Volume 89.7 FL (87-102); Mean Platelet Volume 10.4 FL (9.6-12.0); Monocytes # 0.4 10*3/uL (0.11-0.8); Monocytes % 1.6 % (1.7-12.7); NRBC # 0.02 10*3/uL; Neutrophils # 13.1 10*3/uL (1.4-7.4); Neutrophils % 50.3 % (38.7-73.9); Platelet Count 325 T/CUMM (130-400); Red Blood Count 3.01 MC/CUMM (3.8-5.5); Red Cell Distribution Width 17.2 % (9.3-17.3); White Blood Count 26.1 T/CUMM (4-12)
[2017-11-27 04:46] LABS: INR 1.1; PT Patient Result 11.4 SECS; Partial Thromboplastin Time 34.1 SECS (0-40)
[2017-11-27 04:56] LABS: Bilirubin,Total 0.4 MG/DL (0.2-1.0); Calcium 8.1 MG/DL (8.5-10.1); Osmolality,Calculated 283.8 MOS/KG (273-304); Potassium 4.4 MMOL/L (3.5-5.1)
[2017-11-27 05:10] LABS: Hypochromasia Slight; Platelet Estimate Normal
[2017-11-27] MEDS ORDERED: HYDROmorphone 2 MG/1 ML VIAL IV PRN (07:51)
[2017-11-27] MEDS: ALBUTEROL/IPRATROPIUM 3 ML NEB RESP TX SCH ×3 (08:19→19:30)
[2017-11-27] MEDS: DILTIAZEM CD 120 MG CAPSULE PO SCH (09:35)
[2017-11-27] MEDS: LANSOPRAZOLE ODT 30 MG TABLET PO SCH (09:36)
[2017-11-27] MEDS: ASPIRIN EC 81 MG TABLET PO SCH (09:36)
[2017-11-27] MEDS: KETOROLAC 15 MG/1 ML VIAL IV SCH ×3 (09:36→20:27)
[2017-11-27] MEDS: ENOXAPARIN 40 MG/0.4 ML SYRINGE SUBCUT SCH (09:37)
[2017-11-27] MEDS: FAT EMULSION 20% 250 ML IV SCH (15:22)
[2017-11-27] MEDS: TRACE ELEMENTS (5) 1 ML, MULTIVITAMIN INJ 10 ML, INSULIN REGULAR 30 UNIT in AMINO ACIDS... IV SCH (17:40)
[2017-11-27] MEDS: LEVOFLOXACIN INJ 750 MG in PREMIX 1 EACH IV SCH (20:30)
[2017-11-28] MEDS: ALBUTEROL/IPRATROPIUM 3 ML NEB RESP TX SCH ×4 (01:10→19:50)
[2017-11-28] MEDS: INSULIN REGULAR 100 UNIT/ML SUBCUT SCH ×4 (01:12→19:46)
[2017-11-28] MEDS: KETOROLAC 15 MG/1 ML VIAL IV SCH ×4 (01:44→21:08)
[2017-11-28] MEDS: LACTATED RINGERS 1,000 ML IV SCH (04:40)
[2017-11-28 05:02] LABS: Basophils # 0.1 10*3/uL (0.0-0.2); Basophils % 0.2 % (0.0-0.8); Hematocrit 25.2 VOL% (35.7-47.0); Hemoglobin 8.1 GM/DL (12.0-16.0); Immature Granulocytes % 1.2 %; Immature Granulocytes Absolute 0.38 #; Lymphocytes # 14.5 10*3/uL (1.4-4.0); Lymphocytes % 45.7 % (21.3-54.2); Mean Corpuscular HGB Conc 32.1 GM/DL (32-36); Mean Corpuscular Hemoglobin 29 PG (27-34); Mean Platelet Volume 10.8 FL (9.6-12.0); Monocytes # 1.1 10*3/uL (0.11-0.8); Monocytes % 3.3 % (1.7-12.7); Neutrophils # 15.8 10*3/uL (1.4-7.4); Neutrophils % 49.6 % (38.7-73.9); Platelet Count 342 T/CUMM (130-400); Red Cell Distribution Width 17.1 % (9.3-17.3); White Blood Count 31.8 T/CUMM (4-12)
[2017-11-28 05:24] LABS: Calcium 8.2 MG/DL (8.5-10.1); Osmolality,Calculated 287.4 MOS/KG (273-304)
[2017-11-28 05:37] LABS: Hypochromasia 1+; Ovalocytes Slight; Platelet Estimate Adequate
[2017-11-28] MEDS: DILTIAZEM CD 120 MG CAPSULE PO SCH (09:01)
[2017-11-28] MEDS: ASPIRIN EC 81 MG TABLET PO SCH (09:01)
[2017-11-28] MEDS: LANSOPRAZOLE ODT 30 MG TABLET PO SCH (09:03)
[2017-11-28] MEDS: ENOXAPARIN 40 MG/0.4 ML SYRINGE SUBCUT SCH (09:04)
[2017-11-28] MEDS: VANCOMYCIN INJ 1,000 MG in SODIUM CHLORIDE 0.9% 250 ML IV SCH ×2 (09:08→22:52)
[2017-11-28] MEDS: FAT EMULSION 20% 250 ML IV SCH (15:30)
[2017-11-28] MEDS: ONDANSETRON 4 MG/2 ML VIAL IV PRN (15:52)
[2017-11-28 17:58] LABS: Apearance,Urine CLOUDY (Clear); Bacteria,Urine Occasional /HPF (Few); Bilirubin,Urine Negative (Negative); Blood, Urine Negative (Negative); Glucose,Urine (UA) Negative (Negative); Ketones,Urine Negative (Negative); Mucus,Urine Occasional /LPF (Occasional); Nitrite,Urine Negative (Negative); Protein,Urine Negative; RBC,Urine 1 /HPF (0-4); Squamous Epithelial Cell,Urine Few /HPF (0-10); Urine Color Yellow (Yellow); Urine Specific Gravity 1.017 (1.001-1.035); Urine Urobilinogen < 2.0 EU/DL (0.2-1.0); WBC,Urine 6 /HPF (0-6)
[2017-11-28] MEDS: LEVOFLOXACIN INJ 750 MG in PREMIX 1 EACH IV SCH (21:10)
[2017-11-28] MEDS: TRACE ELEMENTS (5) 1 ML, MULTIVITAMIN INJ 10 ML, INSULIN REGULAR 30 UNIT in AMINO ACIDS... IV SCH (21:13)
[2017-11-29] MEDS: INSULIN REGULAR 100 UNIT/ML SUBCUT SCH ×4 (00:15→17:01)
[2017-11-29] MEDS: KETOROLAC 15 MG/1 ML VIAL IV SCH ×4 (01:10→22:05)
[2017-11-29] MEDS: ALBUTEROL/IPRATROPIUM 3 ML NEB RESP TX SCH ×4 (01:34→18:40)
[2017-11-29 05:12] LABS: Basophils # 0.1 10*3/uL (0.0-0.2); Basophils % 0.2 % (0.0-0.8); Hematocrit 27.7 VOL% (35.7-47.0); Hemoglobin 8.7 GM/DL (12.0-16.0); Immature Granulocytes % 1.1 %; Immature Granulocytes Absolute 0.35 #; Lymphocytes # 13.7 10*3/uL (1.4-4.0); Lymphocytes % 42.7 % (21.3-54.2); Mean Corpuscular HGB Conc 31.4 GM/DL (32-36); Mean Corpuscular Hemoglobin 29 PG (27-34); Mean Corpuscular Volume 90.8 FL (87-102); Mean Platelet Volume 10.3 FL (9.6-12.0); Monocytes # 0.9 10*3/uL (0.11-0.8); Monocytes % 2.8 % (1.7-12.7); Neutrophils # 17.1 10*3/uL (1.4-7.4); Neutrophils % 53.2 % (38.7-73.9); Platelet Count 408 T/CUMM (130-400); Red Blood Count 3.05 MC/CUMM (3.8-5.5); Red Cell Distribution Width 17.6 % (9.3-17.3); White Blood Count 32.2 T/CUMM (4-12)
[2017-11-29 05:34] LABS: Calcium 8.2 MG/DL (8.5-10.1); Osmolality,Calculated 289.3 MOS/KG (273-304)
[2017-11-29 05:40] LABS: Band Neutrophils 8 % (0-10); Lymphocytes 40 % (20-55); Platelet Estimate Increased; Segmented Neutrophils 50 % (50-85); Total Cells Counted 100
[2017-11-29 05:41] LABS: Smudge Cells Few
[2017-11-29 05:42] LABS: Anisocytosis 1+; Macrocytosis 1+
[2017-11-29] MEDS: DILTIAZEM CD 120 MG CAPSULE PO SCH (10:29)
[2017-11-29] MEDS: LANSOPRAZOLE ODT 30 MG TABLET PO SCH (10:29)
[2017-11-29] MEDS: ASPIRIN EC 81 MG TABLET PO SCH (10:30)
[2017-11-29] MEDS: ENOXAPARIN 40 MG/0.4 ML SYRINGE SUBCUT SCH (10:30)
[2017-11-29] MEDS: VANCOMYCIN INJ 1,000 MG in SODIUM CHLORIDE 0.9% 250 ML IV SCH ×2 (10:50→23:50)
[2017-11-29] MEDS: FAT EMULSION 20% 250 ML IV SCH (15:36)
[2017-11-29] MEDS ORDERED: TUBERCULIN SKIN TEST 0.1 ML SYRINGE INTRADERM ONE (15:55)
[2017-11-29] MEDS: LACTATED RINGERS 1,000 ML IV SCH (18:10)
[2017-11-29] MEDS: LEVOFLOXACIN INJ 750 MG in PREMIX 1 EACH IV SCH (22:05)
[2017-11-29] MEDS: TRACE ELEMENTS (5) 1 ML, MULTIVITAMIN INJ 10 ML, INSULIN REGULAR 30 UNIT in AMINO ACIDS... IV SCH (22:06)
[2017-11-30] MEDS: INSULIN REGULAR 100 UNIT/ML SUBCUT SCH ×4 (00:27→18:09)
[2017-11-30] MEDS: KETOROLAC 15 MG/1 ML VIAL IV SCH ×4 (03:30→20:31)
[2017-11-30] MEDS: ALBUTEROL/IPRATROPIUM 3 ML NEB RESP TX SCH ×4 (07:20→19:28)
[2017-11-30 09:02] LABS: Eosinophils % 0.1 % (0.00-10.9); Hematocrit 28.8 VOL% (35.7-47.0); Immature Granulocytes % 1.2 %; Immature Granulocytes Absolute 0.49 #; Lymphocytes # 20.2 10*3/uL (1.4-4.0); Lymphocytes % 48.6 % (21.3-54.2); Mean Corpuscular HGB Conc 31.3 GM/DL (32-36); Mean Corpuscular Hemoglobin 28 PG (27-34); Mean Corpuscular Volume 90.9 FL (87-102); Mean Platelet Volume 9.6 FL (9.6-12.0); Monocytes % 2.4 % (1.7-12.7); Neutrophils # 19.8 10*3/uL (1.4-7.4); Neutrophils % 47.7 % (38.7-73.9); Platelet Count 385 T/CUMM (130-400); Red Blood Count 3.17 MC/CUMM (3.8-5.5); Red Cell Distribution Width 17.8 % (9.3-17.3)
[2017-11-30 09:05] LABS: White Blood Count 41.5 T/CUMM (4-12)
[2017-11-30] MEDS: DILTIAZEM CD 120 MG CAPSULE PO SCH (09:13)
[2017-11-30] MEDS: LANSOPRAZOLE ODT 30 MG TABLET PO SCH (09:13)
[2017-11-30] MEDS: ENOXAPARIN 40 MG/0.4 ML SYRINGE SUBCUT SCH (09:14)
[2017-11-30] MEDS: ASPIRIN EC 81 MG TABLET PO SCH (09:14)
[2017-11-30 09:26] LABS: Albumin 1.7 G/DL (3.4-5.0); Bilirubin,Total 0.6 MG/DL (0.2-1.0); Calcium 8.8 MG/DL (8.5-10.1); Osmolality,Calculated 279.8 MOS/KG (273-304); Potassium 3.8 MMOL/L (3.5-5.1); Total Protein 5.2 G/DL (6.4-8.3)
[2017-11-30 09:27] LABS: Atypical Lymphocytes Few; Band Neutrophils 2 % (0-10); Hypochromasia 1+; Lymphocytes 48 % (20-55); Ovalocytes Slight; Platelet Estimate Adequate; Segmented Neutrophils 50 % (50-85); Smudge Cells Few; Total Cells Counted 100
[2017-11-30 09:28] LABS: Macrocytosis Slight
[2017-11-30] MEDS: VANCOMYCIN INJ 1,000 MG in SODIUM CHLORIDE 0.9% 250 ML IV SCH (10:30)
[2017-11-30] MEDS: DOXYCYCLINE HYCLATE 100 MG CAPSULE PO SCH ×2 (10:31→20:27)
[2017-11-30] MEDS: ACETAMINOPHEN 325 MG TABLET PO PRN (20:27)
[2017-12-01] MEDS: INSULIN REGULAR 100 UNIT/ML SUBCUT SCH ×4 (00:01→18:22)
[2017-12-01] MEDS: ALBUTEROL/IPRATROPIUM 3 ML NEB RESP TX SCH ×4 (00:51→19:20)
[2017-12-01] MEDS: KETOROLAC 15 MG/1 ML VIAL IV SCH ×2 (02:31→10:14)
[2017-12-01 05:03] LABS: Basophils # 0.1 10*3/uL (0.0-0.2); Basophils % 0.3 % (0.0-0.8); Eosinophils # 0.1 10*3/uL (0.0-0.87); Eosinophils % 0.2 % (0.00-10.9); Hematocrit 24.1 VOL% (35.7-47.0); Hemoglobin 7.6 GM/DL (12.0-16.0); Immature Granulocytes % 0.9 %; Immature Granulocytes Absolute 0.27 #; Lymphocytes # 14.9 10*3/uL (1.4-4.0); Lymphocytes % 50.7 % (21.3-54.2); Mean Corpuscular HGB Conc 31.5 GM/DL (32-36); Mean Corpuscular Hemoglobin 29 PG (27-34); Mean Corpuscular Volume 91.3 FL (87-102); Mean Platelet Volume 10.6 FL (9.6-12.0); Monocytes # 0.9 10*3/uL (0.11-0.8); Monocytes % 3.1 % (1.7-12.7); Neutrophils # 13.1 10*3/uL (1.4-7.4); Neutrophils % 44.8 % (38.7-73.9); Platelet Count 342 T/CUMM (130-400); Red Blood Count 2.64 MC/CUMM (3.8-5.5); White Blood Count 29.4 T/CUMM (4-12)
[2017-12-01 05:28] LABS: Albumin 1.4 G/DL (3.4-5.0); Bilirubin,Total 0.7 MG/DL (0.2-1.0); Calcium 8.3 MG/DL (8.5-10.1); Osmolality,Calculated 280.5 MOS/KG (273-304); Potassium 4.4 MMOL/L (3.5-5.1); Total Protein 4.6 G/DL (6.4-8.3)
[2017-12-01 05:34] LABS: Band Neutrophils 2 % (0-10); Lymphocytes 42 % (20-55); Platelet Estimate Normal; Polychromasia Few; Segmented Neutrophils 55 % (50-85); Total Cells Counted 100
[2017-12-01] MEDS: LACTATED RINGERS 1,000 ML IV SCH ×2 (07:09→15:31)
[2017-12-01] MEDS: ACETAMINOPHEN 325 MG TABLET PO PRN (09:26)
[2017-12-01] MEDS: ASPIRIN EC 81 MG TABLET PO SCH (09:27)
[2017-12-01] MEDS: DILTIAZEM CD 120 MG CAPSULE PO SCH (09:28)
[2017-12-01] MEDS: LANSOPRAZOLE ODT 30 MG TABLET PO SCH (09:28)
[2017-12-01] MEDS: DOXYCYCLINE HYCLATE 100 MG CAPSULE PO SCH ×2 (09:28→21:34)
[2017-12-01] MEDS: KETOROLAC 15 MG/1 ML VIAL IV PRN ×2 (15:26→22:18)
[2017-12-01] MEDS ORDERED: MICAFUNGIN 100 MG in SODIUM CHLORIDE 0.9% 100 ML IV SCH (16:00)
[2017-12-01] MEDS ORDERED: SODIUM CHLORIDE 0.9% 1,000 ML IV PRN (16:50)
[2017-12-01] MEDS: ENOXAPARIN 40 MG/0.4 ML SYRINGE SUBCUT SCH (17:11)
[2017-12-01] MEDS: VANCOMYCIN INJ 1,000 MG in SODIUM CHLORIDE 0.9% 250 ML IV SCH (18:35)
[2017-12-02] MEDS: INSULIN REGULAR 100 UNIT/ML SUBCUT SCH ×3 (00:02→12:36)
[2017-12-02] MEDS: ALBUTEROL/IPRATROPIUM 3 ML NEB RESP TX SCH ×3 (00:31→12:18)
[2017-12-02 05:57] LABS: Basophils # 0.1 10*3/uL (0.0-0.2); Basophils % 0.3 % (0.0-0.8); Eosinophils % 0.2 % (0.00-10.9); Hematocrit 33.1 VOL% (35.7-47.0); Immature Granulocytes % 1.2 %; Immature Granulocytes Absolute 0.29 #; Lymphocytes # 13.5 10*3/uL (1.4-4.0); Lymphocytes % 54.3 % (21.3-54.2); Mean Corpuscular HGB Conc 31.4 GM/DL (32-36); Mean Corpuscular Hemoglobin 28 PG (27-34); Mean Corpuscular Volume 87.6 FL (87-102); Mean Platelet Volume 9.6 FL (9.6-12.0); Monocytes # 1.1 10*3/uL (0.11-0.8); Monocytes % 4.3 % (1.7-12.7); Neutrophils # 9.9 10*3/uL (1.4-7.4); Neutrophils % 39.7 % (38.7-73.9); Platelet Count 319 T/CUMM (130-400); Red Cell Distribution Width 17.4 % (9.3-17.3); White Blood Count 24.9 T/CUMM (4-12)
[2017-12-02 06:12] LABS: Hemoglobin 10.4 GM/DL (12.0-16.0); Red Blood Count 3.78 MC/CUMM (3.8-5.5)
[2017-12-02] MEDS: VANCOMYCIN INJ 1,000 MG in SODIUM CHLORIDE 0.9% 250 ML IV SCH (06:15)
[2017-12-02 06:32] LABS: Band Neutrophils 6 % (0-10); Lymphocytes 50 % (20-55); Metamyelocytes 1 %; Nucleated Red Blood Cells 1 (0-5); Platelet Estimate Normal; Segmented Neutrophils 41 % (50-85); Total Cells Counted 100
[2017-12-02 06:33] LABS: Anisocytosis Slight; Macrocytosis Slight; Ovalocytes 1+
[2017-12-02] MEDS: KETOROLAC 15 MG/1 ML VIAL IV PRN (06:36)
[2017-12-02] MEDS: DOXYCYCLINE HYCLATE 100 MG CAPSULE PO SCH (08:20)
[2017-12-02] MEDS: ASPIRIN EC 81 MG TABLET PO SCH (08:20)
[2017-12-02] MEDS: LANSOPRAZOLE ODT 30 MG TABLET PO SCH (08:20)
[2017-12-02] MEDS: DILTIAZEM CD 120 MG CAPSULE PO SCH (08:20)
[2017-12-02] MEDS: ENOXAPARIN 40 MG/0.4 ML SYRINGE SUBCUT SCH (08:23)
[2017-12-02 11:13] VITALS: BP 130/59
[2017-12-02] MEDS: LACTATED RINGERS 1,000 ML IV SCH (19:51)
== END 2017-12-02 15:54 | DRG 329 ==
LOC: N.OR 06:31 → N.SDSINP 06:33 → N.ICU 14:10 → N.3E 11-12 10:04 → N.ICU 11-24 15:24 → N.4E 11-28 12:53
PROVIDERS: ADMIT Surgery; ATTEND Surgery